=== PATIENT | male | born 1960 | race Caucasian/White ===

== ENCOUNTER 2018-01-06 19:34 | Emergency (ER) | payer OTHER ==
[~2018-01-06] VITALS: Ht 177.8 cm; Wt 99.8 kg
[2018-01-06] MEDS ORDERED: TENORMIN50 MG PO (19:48)
[2018-01-06] MEDS ORDERED: ALLOPURINOL 30300 M1 PO (19:49)
[2018-01-06] MEDS ORDERED: METFORMIN HCL500 MG PO (19:49)
[2018-01-06] MEDS ORDERED: KEFLEX500 M1 PO (20:45)
[2018-01-06 21:19] VITALS: BP 140/83
== END 2018-01-06 21:20 | disposition home or self-care (01) ==
LOC: M.ERS 19:34
DX: T33.71XA Superficial frostbite of right knee and lower leg, initial encounter (principal); I10 Essential (primary) hypertension; E11.9 Type 2 diabetes mellitus without complications; M10.9 Gout, unspecified; W93.01XA Contact with dry ice, initial encounter; Y93.89 Activity, other specified; Y92.89 Other specified places as the place of occurrence of the external cause; Y99.8 Other external cause status